=== PATIENT | male | born 1945 | race Caucasian/White ===

== ENCOUNTER 2022-08-23 14:12 | Emergency (ER) | payer MEDICARE, BC, SELFPAY ==
[2022-08-23 14:33] VITALS: BP 156/61; PULSE 71; RESP 20; TEMP 37; O2SAT 99; BMI 18.5
--- NOTE | 2022-08-23 15:09 | ED_ITS ---
HPI - General Adult General Chief complaint: Shortness of Breath/Dyspnea Stated complaint: Pnuemonia for 3+ weeks Time Seen by Provider: 08/23/22 14:41 Source: patient and family Mode of arrival: ambulatory Limitations: no limitations History of Present Illness HPI narrative: 77-year-old male coming in today complaining of pneumonia. Patient states that about 3 weeks ago he came down with a fever of 102 and a couple days later he was diagnosed with pneumonia. He was started on amoxicillin and azithromycin. His fever resolved, however he continued to feel weak and the cough continued. Patient states that he finished a course of antibiotic and went to see his primary care provider on Thursday of this week where he received a chest CT he states that the results came back a couple of days later stating that he had bilateral pneumonia. He was seen in the clinic yesterday when he was told to go to the emergency room because he might be septic according to his nurse practitioner. Patient went to [place] [id number] and [facility], however both were very busy in so he ended up going home instead. He comes here today for a follow-up. He is on day 3 of [facility]. He is not having any fevers. Again continues to feel weak and continues to have a cough. Of note patient does have throat cancer and is undergoing therapy for that. No recent fevers or chills for at least 2 weeks. He has not been having any nausea or vomiting. He does have a very poor appetite but this is unchanged. He denies any diarrhea. No chest pain. Related Data Allergies Allergy/AdvReac Type Severity Reaction Status Date / Time Sulfa (Sulfonamide Allergy Verified 08/23/22 14:33 Antibiotics) Review of Systems Status of ROS: Reports: 10 or more systems reviewed and unremarkable except as noted in History and below [facility] Social History Smoking Status: Former smoker What tobacco products do you use: cigarettes Years smoked: 20 Smoking quit date/years: >15 years ago Do you use any of these nicotine containing products: None Second hand tobacco smoke exposure: No How often do you have a drink containing alcohol: never How often do you have six or more drinks on one occasion: Never AUDIT-C Alcohol total score: 0 Non-prescribed substance use: denies use service: Yes Exam Narrative: Exam Narrative: Vitals are entirely normal without fever, tachypnea or tachycardia. He is sating 99% on room air. Thin, elderly patient in no acute distress. Alert and oriented. Answers questions appropriately. Mood and affect are appropriate. Thoughts are goal oriented and rational. No tangential or magical thinking noted. Patient speaks in full sentences without needing to catch his breath. Does not appear ill or toxic. HEENT: Normocephalic atraumatic. Pupils are equally round reactive to light. Extraocular muscles are intact. Conjunctivae are moist without any icterus noted. Moist mucous membranes. Posterior pharynx is normal. Neck is soft with a prominent anterior mass. Cardiovascular: Heart is regular rate and rhythm S1 and S2 are present with a 2/6 murmur Lungs: Clear to auscultation bilaterally no wheezes rhonchi or rales are appreciated. Patient takes deep breaths without any discomfort. Abdomen: Soft and nontender nondistended with normal bowel sounds. Extremities: Bilateral lower extremities are without edema. Normal DP and PT pulses. Skin: Well perfused without any obvious rashes. Const: Vital Signs, click to edit/add: Vital Signs - 24 hr 08/23/22 14:33 Temperature 98.6 F Pulse Rate [Pulse Oximeter] 71 Respiratory Rate 20 Blood Pressure [Le ft Upper Arm] 156/61 H Pulse Oximetry 99 Oxygen Delivery Me thod Room Air Course Course Hospital Course: CRP slightly elevated but he does not have an elevated white cell count. His hemoglobin is 7.6. I was able to obtain previous lab values for this patient and it appears that on 08/02/2022 he had a hemoglobin of 7.5 and a white cell count of 11.6. We did discuss the option of a blood transfusion, however, after further discussion with the patient as well as with our hospitalist Dr. Christine, we opted not to proceed as his hemoglobin has been stable for 3 weeks. Given that he has been afebrile since his initial treatment and his white cell count is normalized, I will not change his current treatment he will continue with Levaquin. He will follow up with primary care provider early next week. Certainly return to the ER if his symptoms worsen. Patient and were agreeable with everything we discussed had no other questions. Vital Signs Vital signs: Initial Vital Signs Temperature 98.6 F 08/23/22 14:33 Temperature Source Temporal Artery Scan 08/23/22 14:33 Pulse Rate 71 08/23/22 14:33 Pulse Rhythm 08/23/22 14:33 Respiratory Rate 20 08/23/22 14:33 Blood Pressure 156/61 H 08/23/22 14:33 Blood Pressure Mean 92 08/23/22 14:33 Blood Pressure Position Supine 08/23/22 14:33 Pulse Oximetry 99 08/23/22 14:33 Oxygen Delivery Method 08/23/22 14:33 Vital Signs Temperature 98.6 F 08/23/22 14:33 Pulse Rate 71 08/23/22 14:33 Respiratory Rate 20 08/23/22 14:33 Blood Pressure 156/61 H 08/23/22 14:33 Pulse Oximetry 99 08/23/22 14:33 Oxygen Delivery Method 08/23/22 14:33 Temperature 98.6 F 08/23/22 14:33 Pulse Rate 71 08/23/22 14:33 Respiratory Rate 20 08/23/22 14:33 Blood Pressure 156/61 H 08/23/22 14:33 Pulse Oximetry 99 08/23/22 14:33 Oxygen Delivery Method 08/23/22 14:33 Medical Decision Making MDM Narrative Medical decision making narrative: 77-year-old male with fatigue, weakness, pneumonia. Patient will continue Levaquin as is. We discussed following up with primary care provider to discuss next steps in management. He is hemodynamically stable in the ER today without hypoxia, tachypnea or tachycardia. Patient had no other questions. Medical Records Medical records reviewed: Yes I reviewed the patient's medical records Lab Data Lab results reviewed: Yes I reviewed the patient's lab results Labs: Lab Results 08/23/22 08/23/22 08/23/22 Range/Units 15:07 15:07 15:07 WBC 4.89 (4.50-11.00) K/uL RBC 2.93 L (4.30-5.90) m/uL Hgb 7.6 L* (13.5-17.5) gm/dL Hct 25.4 L (37.0-53.0) % MCV 87 (80-100) fL MCH 26 (26-34) pg MCHC 30 L (32-36) gm/dL RDW Coeff of Asher 14.7 (11.5-15.5) % Plt Count 253 (140-440) K/uL Neut % (Auto) 77.1 H (42.0-72.0) % Lymph % (Auto) 8.8 L (20-44) % Platte % (Auto) 7.2 (0.0-11.0) % Eos % (Auto) 6.1 (0.0-7.0) % Baso % (Auto) 0.6 (0.0-3.0) % Neut # (Auto) 3.80 (1.7-7.0) K/uL Lymph # (Auto) 0.40 L (0.90-2.90) K/uL Platte # (Auto) 0.40 (0.00-0.90) K/UL Eos # (Auto) 0.30 (0.00-0.50) K/uL Baso # (Auto) 0.03 (0.00-0.30) K/uL Abs Immat Gran (auto) 0.01 (0.00-0.30) K/uL Imm/Tot Granulo (auto) 0.2 % Sodium 138 (135-149) mmol/L Potassium 4.3 (3.6-5.1) mmol/L Chloride 104 (96-114) mmol/L Carbon Dioxide 29 (20-32) mmol/L BUN 32 H (7-30) mg/dL Creatinine 1.1 (0.5-1.5) mg/dL Estimated Creat Clear 52.12 Estimated GFR 70 ml/min Glucose 83 (60-115) mg/dL Lactate (0.5-1.9) mmol/L Calcium 9.0 (8.4-10.6) mg/dL Troponin I < 0.01 L (0.01-0.04) ng/mL C-Reactive Protein 6.2 H (0.5-1.0) mg/dL 08/23/22 Range/Units 15:07 WBC (4.50-11.00) K/uL RBC (4.30-5.90) m/uL Hgb (13.5-17.5) gm/dL Hct (37.0-53.0) % MCV (80-100) fL MCH (26-34) pg MCHC (32-36) gm/dL RDW Coeff of Asher (11.5-15.5) % Plt Count (140-440) K/uL Neut % (Auto) (42.0-72.0) % Lymph % (Auto) (20-44) % Platte % (Auto) (0.0-11.0) % Eos % (Auto) (0.0-7.0) % Baso % (Auto) (0.0-3.0) % Neut # (Auto) (1.7-7.0) K/uL Lymph # (Auto) (0.90-2.90) K/uL Platte # (Auto) (0.00-0.90) K/UL Eos # (Auto) (0.00-0.50) K/uL Baso # (Auto) (0.00-0.30) K/uL Abs Immat Gran (auto) (0.00-0.30) K/uL Imm/Tot Granulo (auto) % Sodium (135-149) mmol/L Potassium (3.6-5.1) mmol/L Chloride (96-114) mmol/L Carbon Dioxide (20-32) mmol/L BUN (7-30) mg/dL Creatinine (0.5-1.5) mg/dL Estimated Creat Clear Estimated GFR ml/min Glucose (60-115) mg/dL Lactate 0.4 L (0.5-1.9) mmol/L Calcium (8.4-10.6) mg/dL Troponin I (0.01-0.04) ng/mL C-Reactive Protein (0.5-1.0) mg/dL ECG Data Attestation: I personally reviewed and interpreted this ECG as follows: (Normal sinus rhythm a pulse of 68) Discharge Plan Discharge Clinical Impression: Pneumonia Patient Disposition: Home, Self-Care Condition: Stable Additional Instructions: Follow-up with primary care provider early next week for further management. Return to the ER if the symptoms are getting worse. Follow Up/Referrals: Provider,Not a Local [Primary Care Provider] - Stand Alone Forms: [email or web address] Info Instructions
[2022-08-23 15:14] LABS: Lactate* 0.4 mmol/L (0.5-1.9)
[2022-08-23 15:17] LABS: Basophils Absolute Auto 0.03 K/uL (0.00-0.30); Basophils Percent Auto 0.6 % (0.0-3.0); Eosinophils Percent Auto 6.1 % (0.0-7.0); Hematocrit 25.4 % (37.0-53.0); Immature Granulocytes Abs Auto 0.01 K/uL (0.00-0.30); Immature Granulocytes Pct Auto 0.2 %; Lymphocytes Percent Auto 8.8 % (20-44); Mean Corpuscular HGB Conc 30 gm/dL (32-36); Mean Corpuscular Hemoglobin 26 pg (26-34); Mean Corpuscular Volume 87 fL (80-100); Monocytes Percent Auto 7.2 % (0.0-11.0); Neutrophils Percent Auto 77.1 % (42.0-72.0); Platelet Count* 253 K/uL (140-440); RDW Coefficient of Variation % 14.7 % (11.5-15.5); Red Blood Count 2.93 m/uL (4.30-5.90); White Blood Count* 4.89 K/uL (4.50-11.00)
[2022-08-23 15:32] LABS: Chloride* 104 mmol/L (96-114); Potassium* 4.3 mmol/L (3.6-5.1); Sodium* 138 mmol/L (135-149)
[2022-08-23 15:35] LABS: Creatinine* 1.1 mg/dL (0.5-1.5); Est. Creatinine Clearance* 52.12; Estimated Glomerular Filt Rate 70 ml/min
[2022-08-23 15:36] LABS: Blood Urea Nitrogen* 32 mg/dL (7-30); Carbon Dioxide* 29 mmol/L (20-32); Glucose* 83 mg/dL (60-115)
[2022-08-23 15:39] LABS: C Reactive Protein* 6.2 mg/dL (0.5-1.0)
[2022-08-23 15:43] LABS: Hemoglobin* 7.6 gm/dL (13.5-17.5); Slide Review Reflex Yes
[2022-08-23 15:50] LABS: Troponin I* < 0.01 ng/mL (0.01-0.04)
[2022-08-23 15:56] LABS: Erythrocyte SedimentationRate* 83 mm/hr (2-15)
[2022-08-23 16:09] LABS: PCR FLU A Negative PCR FLU A (Negative); PCR FLU B Negative PCR FLU B (Negative); PCR RSV Negative PCR RSV (Negative)
[2022-08-23 16:10] LABS: SARS PCR* Negative SARS-CoV-2 (Negative)
[2022-08-23 18:23] LABS: Slide Review Acceptable Review (Acceptable)
== END 2022-08-23 16:08 | disposition home or self-care (01) ==
PROVIDERS: Emergency Provider Family Medicine
DX: J18.9 Pneumonia, unspecified organism (principal)
CPT/HCPCS: 36415; 80048; 83605; 84484; 85025; 85651; 86140; 87502; 87634; 87635; 93005; 99284